=== PATIENT | female | born 1960 | race Caucasian/White ===

== ENCOUNTER 2017-06-07 15:39 | Emergency (ER) | payer OTHER ==
[2017-06-07 16:10] VITALS: BP 150/76
--- NOTE | 2017-06-07 16:53 | UC ---
Ear Complaint HPI - HPI Summary HPI Summary: Pt complains of RT earache for the last week, gradually getting worse. Some PND and chest congestion. No drainage from the ear. No fevers or chills. Still smoking. - History of Current Complaint Chief Complaint: UCEar Stated Complaint: RIGHT EAR PAIN Time Seen by Provider: 06/07/17 16:46 Hx Obtained From: Patient Hx Last Menstrual Period: 2010 Onset/Duration: Gradual Onset Severity Initially: Mild Severity Currently: Moderate Pain Intensity: 7 Pain Scale Used: 0-10 Numeric Associated Signs/Symptoms: Positive: Hearing Loss, URI Symptoms Related History: Seasonal Allergies, Smoking - Allergies/Home Medications Allergies/Adverse Reactions: Allergies Allergy/AdvReac Type Severity Reaction Status Date / Time No Known Allergies Allergy Verified 06/07/17 16:10 Home Medications: Home Medications Meloxicam [Mobic] 15 mg PO DAILY 06/07/17 [History Confirmed 06/07/17] PMH/Surg Hx/FS Hx/Imm Hx Previously Healthy: Yes Respiratory History: Bronchitis Psychological History: Bipolar Disorder Other History Of: Negative For: HIV, Hepatitis B, Hepatitis C - Surgical History Surgical History: None Surgery Procedure, Year, and Place: 3 normal vag. deliveries - Family History Known Family History: Positive: Cardiac Disease, Diabetes - Social History Alcohol Use: None Substance Use Type: Marijuana Substance Use Comment - Amount & Last Used: occ. usage Smoking Status (MU): Heavy Every Day Tobacco Smoker Type: Cigarettes Amount Used/How Often: 1/2-3/4 ppd Length of Time of Smoking/Using Tobacco: since age 14 Have You Smoked in the Last Year: Yes Household Exposure Type: Cigarettes Cessation Counseling: Counseled 3+Min - 10 Min - Immunization History Most Recent Influenza Vaccination: has not had Review of Systems Constitutional: Negative ENT: Sore Throat, Ear Ache Respiratory: Cough Cardiovascular: Negative Neurological: Negative Psychological: Negative Is Patient Immunocompromised?: No All Other Systems Reviewed And Are Negative: Yes Physical Exam Triage Information Reviewed: Yes Appearance: Well-Appearing, Well-Nourished Vital Signs: Initial Vital Signs Temp 98.2 F 06/07/17 16:03 Pulse 76 06/07/17 16:03 Resp 20 06/07/17 16:03 BP 150/76 06/07/17 16:03 Pulse Ox 100 06/07/17 16:03 Vital Signs Reviewed: Yes Eyes: Positive: Conjunctiva Clear ENT: Positive: Pharynx normal, TM bulging - right, TM red - right. Negative: Pharyngeal erythema, Nasal congestion, Nasal drainage, Tonsillar swelling, Tonsillar exudate Neck: Positive: Supple, Nontender, No Lymphadenopathy Respiratory: Positive: Chest non-tender, Lungs clear, Normal breath sounds, No respiratory distress, No accessory muscle use. Negative: Crackles, Rhonchi, Wheezing Cardiovascular: Positive: RRR, No Murmur Neurological: Positive: Alert Psychological: Positive: Age Appropriate Behavior Skin: Negative: rashes, significant lesion(s) Ear Complaint Course/Dx - Course Course Of Treatment: Pt in moderate discomfort with evident otitis media. Rx for amoxicillin - Differential Dx/Diagnosis Differential Diagnosis/HQI/PQRI: Barotrauma, Otitis Externa, Otitis Media, Perforated TM Provider Diagnoses: Otitis Media Discharge - Discharge Plan Condition: Stable Disposition: HOME Prescriptions: Amoxicillin PO (*) [Amoxicillin 500 MG CAP*] 500 mg PO Q12H #20 cap Patient Education Materials: Otitis Media (ED) Referrals: HARLAN Wilson [Primary Care Provider] - Additional Instructions: If you develop a fever, new or increased symptoms - please call our office or go to the ED.
== END 2017-06-07 17:06 | disposition home or self-care (01) ==
LOC: UCCORT 15:39
DX: H66.91 Otitis media, unspecified, right ear (principal); F31.9 Bipolar disorder, unspecified; F17.210 Nicotine dependence, cigarettes, uncomplicated
CPT/HCPCS: 99212; G0463

== ENCOUNTER 2017-06-14 19:36 | Emergency (ER) | payer OTHER ==
--- NOTE | 2017-06-14 19:58 | UC ---
Ear Complaint HPI - HPI Summary HPI Summary: 56 YEAR OLD FEMALE PRESENTS WITH RIGHT EAR PAIN. ON A SIDE NOTE SHE WAS TREATED WITH AMOXIL FOR AN EAR INFECTION ON HER PREVIOUS VISIT. - History of Current Complaint Stated Complaint: RT EAR PAIN Time Seen by Provider: 06/14/17 19:58 Hx Obtained From: Patient Hx Last Menstrual Period: 2010 Onset/Duration: Sudden Onset Severity Initially: Moderate Severity Currently: Moderate Pain Scale Used: 0-10 Numeric - 5 - Allergies/Home Medications Allergies/Adverse Reactions: Allergies Allergy/AdvReac Type Severity Reaction Status Date / Time No Known Allergies Allergy Verified 06/14/17 20:02 PMH/Surg Hx/FS Hx/Imm Hx Previously Healthy: Yes Other History Of: Negative For: HIV, Hepatitis B, Hepatitis C - Surgical History Surgical History: None Surgery Procedure, Year, and Place: 3 normal vag. deliveries - Family History Known Family History: Positive: Cardiac Disease, Diabetes - Social History Alcohol Use: None Substance Use Type: Marijuana Substance Use Comment - Amount & Last Used: occ. usage Smoking Status (MU): Heavy Every Day Tobacco Smoker Type: Cigarettes Amount Used/How Often: 1/2-3/4 ppd Length of Time of Smoking/Using Tobacco: since age 14 Have You Smoked in the Last Year: Yes Household Exposure Type: Cigarettes - Immunization History Most Recent Influenza Vaccination: has not had Review of Systems Constitutional: Negative Skin: Negative Eyes: Negative ENT: Ear Ache Respiratory: Negative Cardiovascular: Negative Gastrointestinal: Negative Genitourinary: Negative Motor: Negative Neurovascular: Negative Musculoskeletal: Negative Neurological: Negative Psychological: Negative All Other Systems Reviewed And Are Negative: Yes Physical Exam Triage Information Reviewed: Yes Vital Signs Reviewed: Yes Eye Exam: Normal ENT: Positive: Other - RIGHT OTITIS EXTERNA Dental Exam: Normal Neck exam: Normal Neck: Positive: 1 Respiratory Exam: Normal Cardiovascular Exam: Normal Abdominal Exam: Normal Musculoskeletal Exam: Normal Neurological Exam: Normal Psychological Exam: Normal Skin Exam: Normal Ear Complaint Course/Dx - Differential Dx/Diagnosis Provider Diagnoses: RIGHT OTITIS EXTERNA Discharge - Discharge Plan Condition: Stable Disposition: HOME Prescriptions: Fluticasone NASAL * [Flonase *] 2 spray BOTH NARES DAILY #1 spray Neomyc/Polym/HC 1% OTIC SUSP* [Cortisporin Otic Susp 1%*] 4 drop RIGHT EAR QID # 1 btl Patient Education Materials: Otitis Externa (ED) Referrals: HARLAN Lucero,HARLAN [Primary Care Provider] -
[2017-06-14 20:02] VITALS: BP 144/61
== END 2017-06-14 20:38 | disposition home or self-care (01) ==
LOC: UCCORT 19:36
DX: H60.91 Unspecified otitis externa, right ear (principal); F17.210 Nicotine dependence, cigarettes, uncomplicated
CPT/HCPCS: 99211; G0463

== ENCOUNTER 2018-01-28 14:12 | Emergency (ER) | payer OTHER ==
[2018-01-28 14:37] VITALS: BP 142/66
--- NOTE | 2018-01-28 15:07 | UC ---
Lower Extremity/Ankle HPI - HPI Summary HPI Summary: 57 yo c/o R leg eccymosis, pain since yesterday. Discomfort is in superior posterior calf. Does not recall trauma. Does have a hx varicosities (veins), works on her feet. Does not use compression. No sob / cp / palpitations. No fever / chills. Denies echymoses elsewhere. No new p/d/w. Situational depression - specifically denies suicidal / homicidal ideation - has upcoming appt with pcp. - History of Current Complaint Chief Complaint: UCGeneralIllness Stated Complaint: RT LEG COMPLAINT, SHAKY Time Seen by Provider: 01/28/18 14:29 Hx Obtained From: Patient Hx Last Menstrual Period: 2010 Pain Intensity: 0 - Allergies/Home Medications Allergies/Adverse Reactions: Allergies Allergy/AdvReac Type Severity Reaction Status Date / Time No Known Allergies Allergy Verified 06/14/17 20:02 Home Medications: Home Medications Atorvastatin* [Lipitor 10 MG*] 10 mg PO DAILY 01/28/18 [History Confirmed ] PMH/Surg Hx/FS Hx/Imm Hx Previously Healthy: Yes Other History Of: Negative For: HIV, Hepatitis B, Hepatitis C - Surgical History Surgical History: None Surgery Procedure, Year, and Place: 3 normal vag. deliveries - Family History Known Family History: Positive: Cardiac Disease, Diabetes - Social History Occupation: Employed Part-time Alcohol Use: None Substance Use Type: Marijuana Substance Use Comment - Amount & Last Used: occ. usage Smoking Status (MU): Heavy Every Day Tobacco Smoker Type: Cigarettes Amount Used/How Often: 1/2-3/4 ppd Length of Time of Smoking/Using Tobacco: since age 14 Have You Smoked in the Last Year: Yes Household Exposure Type: Cigarettes - Immunization History Most Recent Influenza Vaccination: has not had Review of Systems Constitutional: Fatigue Skin: Bruising Eyes: Negative ENT: Negative Respiratory: Negative Cardiovascular: Negative Gastrointestinal: Negative Genitourinary: Negative Motor: Other - see hpi Neurovascular: Other - see hpi Musculoskeletal: Calf Tenderness, Myalgia Neurological: Other Psychological: Anxious - hx anxiety, but reports that she is ok now that she will be off work for the next few days., Depressed - reports that her loved one recently , and is situationally depressed. Specifically denies suicidal ideation. Is Patient Immunocompromised?: No All Other Systems Reviewed And Are Negative: Yes Physical Exam Triage Information Reviewed: Yes Appearance: Well-Nourished - sitting up, conversing in full sentances Vital Signs: Initial Vital Signs Temp 98.7 F 01/28/18 14:30 Pulse 84 01/28/18 14:30 Resp 21 01/28/18 14:30 BP 142/66 01/28/18 14:30 Pulse Ox 98 01/28/18 14:30 Vital Signs Reviewed: Yes Eye Exam: Normal - grossly normal ENT Exam: Normal - grossly normal Neck exam: Normal Neck: Positive: Supple Respiratory Exam: Normal Respiratory: Positive: Chest non-tender, Lungs clear, Normal breath sounds, No respiratory distress Cardiovascular Exam: Normal - DP and faint PT palbable BLE Cardiovascular: Positive: RRR, No Murmur, Pulses Normal, Brisk Capillary Refill Abdominal Exam: Normal Abdomen Description: Positive: Nontender Musculoskeletal Exam: Normal - moves x 4 ext's. Able to ambulate. Feet warm to touch. Superior post calf with approx 15cm diam irregular eccymosis, tender to pressure, nonfluctuant. Post knee non-tender. Without aimee eugene' s. BLE - + several venous varicosities, + evidence of venous reflux and insufficiency. Paucity of hair growth BLE. BLE mild dependent edema. Lower Extremity Course/Dx - Course Course Of Treatment: U/S RLE -. Plans to f/u with PCP as scheduled 09 February 2018. Reviewed coa / tx plan. Recommend compression stockings, elevation. She reports that she has compression stockings at home, has not used them in a while, will use start wearing them again. Will f/u PCP as planned. Rx atarax as needed anxiety. She will check with pcp if further medications / anxiolytics indicated. Appears pleased and expresses gratitude for care. Questions as posed answered to the best of my ability. - Differential Dx/Diagnosis Provider Diagnoses: Venous insuff with eccymosis (not dvt). Anxiety Discharge - Sign-Out/Discharge Documenting (check all that apply): Discharge/Admit/Transfer - Discharge Plan Condition: Stable Disposition: HOME Prescriptions: hydrOXYzine HCL TAB* [Atarax 25 MG TAB*] 25 mg PO TID PRN #21 tab PRN Reason: Anxiety Patient Education Materials: Anxiety (ED), Venous Insufficiency (DC) Forms: *Work Release Referrals: HARLAN Wilson [Primary Care Provider] - Additional Instructions: Follow up with your primary care physician as scheduled this month. Seek medical attention for worse or new problems. Moisturize your legs daily. Elevate your legs frequently. Avoid prolonged periods of legs in downward position. Should this happen, then elevate your legs above your heart as soon as possible afterwards. Consider further evaluation (check with your doctor) for deep venous insufficiency and reflux. Consider compression stockings / socks (20-30mmHg / medium compression). - Billing Disposition and Condition Condition: STABLE Disposition: Home
--- NOTE | 2018-01-28 15:23 | RAD ---
INDICATION: Bruising and swelling at the RIGHT calf. COMPARISON: No relevant prior exams available on the [facility] [place] TECHNIQUE: Collado scale, color Doppler, and spectral analysis of the deep veins of the RIGHT lower extremity. Vessel compression, phasicity, and augmentation assessed. REPORT: The RIGHT common femoral, great saphenous, profunda femoral, femoral, popliteal, peroneal, and posterior tibial veins are patent. No loculated hematoma evident at the site of the medial RIGHT calf bruising. Patency of the LEFT common femoral vein documented. IMPRESSION: No evidence for RIGHT lower extremity deep venous thrombosis.
== END 2018-01-28 16:09 | disposition home or self-care (01) ==
LOC: UCCORT 14:12
DX: I87.2 Venous insufficiency (chronic) (peripheral) (principal); R58 Hemorrhage, not elsewhere classified; F41.9 Anxiety disorder, unspecified; F17.210 Nicotine dependence, cigarettes, uncomplicated
CPT/HCPCS: 99212; G0463

== ENCOUNTER 2018-06-27 07:57 | Emergency (ER) | payer OTHER ==
[2018-06-27 08:53] VITALS: BP 183/75
--- NOTE | 2018-06-27 09:16 | UC ---
Respiratory Complaint HPI - HPI Summary HPI Summary: Cough for 2-3 weeks, green drainage; pt had Flonase for allergies but hasn't taken; CP worsens with cough, headaches off on. 0851 Rpt BP= 162/69; last cigarette was smoked 0750 - History of Current Complaint Chief Complaint: UCRespiratory Stated Complaint: COUGH, CHEST CONGESTION Time Seen by Provider: 06/27/18 09:08 Hx Last Menstrual Period: 7 yrs Pain Intensity: 2 - Allergies/Home Medications Allergies/Adverse Reactions: Allergies Allergy/AdvReac Type Severity Reaction Status Date / Time No Known Allergies Allergy Verified 06/27/18 08:36 Home Medications: Home Medications Cyclobenzaprine TAB* [Flexeril 10 MG TAB*] 10 mg PO TID PRN 06/27/18 [History Confirmed 06/27/18] Gabapentin CAP(*) [Neurontin 300 CAP(*)] 600 mg PO BID PRN 06/27/18 [History Confirmed 06/27/18] Naproxen Sodium [Naproxen 550 mg] 550 mg PO BID PRN 06/27/18 [History Confirmed 06/27/18] QUEtiapine TAB* [Seroquel 25 MG TAB*] 50 mg PO DAILY PRN 06/27/18 [History Confirmed 06/27/18] lamoTRIgine [Lamotrigine ER] 200 mg PO DAILY 06/27/18 [History Confirmed ] PMH/Surg Hx/FS Hx/Imm Hx Psychological History: Bipolar Disorder Other History Of: Negative For: HIV, Hepatitis B, Hepatitis C - Surgical History Surgical History: None Surgery Procedure, Year, and Place: 3 normal vag. deliveries - Family History Known Family History: Positive: Cardiac Disease, Diabetes - Social History Alcohol Use: None Substance Use Type: Marijuana Substance Use Comment - Amount & Last Used: occ. usage-last use 06/24/18 Smoking Status (MU): Heavy Every Day Tobacco Smoker Type: Cigarettes Amount Used/How Often: 1/2-3/4 ppd Length of Time of Smoking/Using Tobacco: since age 14 Have You Smoked in the Last Year: Yes Household Exposure Type: Cigarettes - Immunization History Most Recent Influenza Vaccination: has not had Review of Systems All Other Systems Reviewed And Are Negative: Yes Skin: Positive: Negative Physical Exam Triage Information Reviewed: Yes Appearance: Well-Appearing, No Pain Distress, Well-Nourished Vital Signs: Initial Vital Signs Temp 98.5 F 06/27/18 08:39 Pulse 70 06/27/18 08:39 Resp 16 06/27/18 08:39 BP 183/75 06/27/18 08:39 Pulse Ox 99 06/27/18 08:39 Vital Signs Reviewed: Yes Eyes: Positive: Conjunctiva Clear ENT: Positive: Hearing grossly normal, Pharynx normal, Pharyngeal erythema, Nasal congestion Neck: Positive: Supple, Nontender, No Lymphadenopathy Respiratory: Positive: Chest non-tender, Lungs clear, Normal breath sounds, No respiratory distress Cardiovascular: Positive: RRR, No Murmur, Pulses Normal, Brisk Capillary Refill Abdomen Description: Positive: Nontender, No Organomegaly, Soft Bowel Sounds: Positive: Present Psychological Exam: Other - flat affect Skin Exam: Normal UC Diagnostic Evaluation - Laboratory O2 Sat by Pulse Oximetry: 99 Respiratory Course/Dx - Course Course Of Treatment: patient with cough for the past 3 weeks of occasional cough , chest xray negative for pneumonia, changes consistent with COPD. Smoking cessation counseling given, f/u with PCP, start combivent MDI , oral hydration and supportive care - Differential Dx/Diagnosis Provider Diagnoses: elevated BP without diagnosis of HTN. Tobacco use. COPD Discharge - Sign-Out/Discharge Documenting (check all that apply): Patient Departure All imaging exams completed and their final reports reviewed: Yes - Discharge Plan Condition: Stable Disposition: HOME Patient Education Materials: COPD (Chronic Obstructive Pulmonary Disease) (ED) , How to Stop Smoking (ED), Ipratropium/Albuterol (By breathing) Referrals: Kalie Archibald MD [Primary Care Provider] - - Billing Disposition and Condition Condition: STABLE Disposition: Home
== END 2018-06-27 10:10 | disposition home or self-care (01) ==
LOC: UCCORT 07:57
DX: R03.0 Elevated blood-pressure reading, without diagnosis of hypertension (principal); F17.210 Nicotine dependence, cigarettes, uncomplicated; J44.9 Chronic obstructive pulmonary disease, unspecified; F31.9 Bipolar disorder, unspecified
CPT/HCPCS: 71046; 99212; G0463

== ENCOUNTER 2018-12-30 11:46 | Emergency (ER) | payer OTHER ==
[2018-12-30 12:15] VITALS: BP 157/69
--- NOTE | 2018-12-30 13:06 | UC ---
Respiratory Complaint HPI - HPI Summary HPI Summary: 58 -year-old female who is a smoker who states she's been ill for approximately 3 days and is coughing up a small amount of green sputum. She denies any fever or chills. - History of Current Complaint Chief Complaint: UCRespiratory Stated Complaint: COUGH Time Seen by Provider: 12/30/18 13:06 Hx Obtained From: Patient Hx Last Menstrual Period: 7 yrs Onset/Duration: Gradual Onset Severity Initially: Mild Severity Currently: Mild Pain Intensity: 7 Aggravating Factors: Nothing Alleviating Factors: Nothing Associated Signs And Symptoms: Positive: URI, Nasal Congestion Related History: Seasonal Allergies - Allergies/Home Medications Allergies/Adverse Reactions: Allergies Allergy/AdvReac Type Severity Reaction Status Date / Time No Known Allergies Allergy Verified 12/30/18 12:15 PMH/Surg Hx/FS Hx/Imm Hx Previously Healthy: Yes Psychological History: Bipolar Disorder Other History Of: Negative For: HIV, Hepatitis B, Hepatitis C - Surgical History Surgical History: None Surgery Procedure, Year, and Place: 3 normal vag. deliveries - Family History Known Family History: Positive: Cardiac Disease, Diabetes - Social History Alcohol Use: None Substance Use Type: Marijuana Substance Use Comment - Amount & Last Used: occ. usage-last use 06/24/18 Smoking Status (MU): Heavy Every Day Tobacco Smoker Type: Cigarettes Amount Used/How Often: 1/2-3/4 ppd Length of Time of Smoking/Using Tobacco: since age 14 Have You Smoked in the Last Year: Yes Household Exposure Type: Cigarettes - Immunization History Most Recent Influenza Vaccination: has not had Review of Systems All Other Systems Reviewed And Are Negative: Yes Respiratory: Positive: Cough - Occasional productive cough of green sputum. Neurovascular: Positive: Other - Patient states that recently her arthritis has been flaring up however she sees her primary care provider for injections. Is Patient Immunocompromised?: No Physical Exam Triage Information Reviewed: Yes Appearance: Well-Appearing, No Pain Distress, Well-Nourished Vital Signs: Initial Vital Signs Temp 98.4 F 12/30/18 12:09 Pulse 75 12/30/18 12:09 Resp 18 12/30/18 12:09 BP 157/69 12/30/18 12:09 Pulse Ox 99 12/30/18 12:09 Vital Signs Reviewed: Yes Eye Exam: Normal ENT: Positive: Normal ENT inspection, Hearing grossly normal, Pharynx normal, Nasal drainage, TMs normal, Uvula midline. Negative: Trismus Neck: Positive: Supple, Nontender, No Lymphadenopathy Respiratory: Positive: Lungs clear, Normal breath sounds, No respiratory distress, No accessory muscle use Cardiovascular: Positive: RRR, No Murmur, Pulses Normal, Brisk Capillary Refill Musculoskeletal Exam: Normal Neurological Exam: Normal Psychological Exam: Normal Skin Exam: Normal Respiratory Course/Dx - Course Course Of Treatment: Chest x-ray:FINDINGS: The heart is within normal limits in size. Mediastinal and hilar contours appear within normal limits. The lungs are hyperinflated and clear. No pleural effusion is seen. IMPRESSION: FINDINGS CONSISTENT WITH COPD, NO EVIDENCE FOR ACUTE DISEASE. Patient was advised to stop smoking. I believe this is a viral upper respiratory illness and she is to follow-up with her primary care provider if no improvement in 3 or 4 days. - Differential Dx/Diagnosis Provider Diagnosis: URI (upper respiratory infection) Discharge - Sign-Out/Discharge Documenting (check all that apply): Patient Departure All imaging exams completed and their final reports reviewed: Yes - Discharge Plan Condition: Fair Disposition: HOME Patient Education Materials: Upper Respiratory Infection (DC) Referrals: Kalie Archibald MD [Primary Care Provider] - Additional Instructions: Increase fluids, follow-up with your primary care provider in 3 or 4 days if no improvement. - Billing Disposition and Condition Condition: FAIR Disposition: Home
== END 2018-12-30 13:34 | disposition home or self-care (01) ==
LOC: UCCORT 11:46
DX: J06.9 Acute upper respiratory infection, unspecified (principal); F17.210 Nicotine dependence, cigarettes, uncomplicated
CPT/HCPCS: 71046; 99211; G0463